=== PATIENT | female | born 1990 | race Caucasian/White ===

== ENCOUNTER 2016-10-22 23:24 | Inpatient (IN) | payer OTHER ==
[~2016-10-22] VITALS: Ht 149.9 cm; Wt 72.6 kg
[~2016-10-22 23:24] MED LIST: CIPR-255 PO; CLON0.5T3 PO; PRLSR20 PO; QUET-206 PO; SERT50TA PO
[2016-10-23] MEDS ORDERED: LACTATED RINGER'S 1000ML 1,000 ML IV SCH (00:22)
[2016-10-23] MEDS ORDERED: LACTATED RINGER'S 1000ML 1,000 ML IV PRN (00:22)
[2016-10-23] MEDS ORDERED: FERR1TAB23 (00:26)
[2016-10-23] MEDS ORDERED: ESOM20CA PO (00:26)
[2016-10-23] MEDS ORDERED: PRENTAB26 PO (00:26)
[2016-10-23 00:27] VITALS: Ht 149.9 cm; Wt 72.6 kg
[2016-10-23 01:03] LABS: MEAN CELL VOLUME 79.7 fL (80-100); MEAN CORPUSCULAR HEMOGLOBIN 27.6 pg (25-34); MEAN CORPUSCULAR HGB CONC 34.6 g/dl (32-36); MEAN PLATELET VOLUME 9.7 fL (7.4-10.4); PLATELET COUNT 422 K/uL (130-400); RED BLOOD COUNT 4.64 M/uL (4.2-5.4); WHITE BLOOD COUNT 22.28 K/uL (4.8-10.8)
[2016-10-23] MEDS ORDERED: LACTATED RINGER'S 1000ML 500 ML IV PRN ×2 (06:58→15:02)
[2016-10-23] MEDS: OXYTOCIN 30 UNITS/500ML NSS IV PRN ×2 (07:18→15:36)
--- NOTE | 2016-10-23 07:38 | HISTORY & PHYSICAL EXAMINATION ---
DATE OF ADMISSION: 10/23/2016 CHIEF COMPLAINT: Spontaneous rupture of membranes. HISTORY OF PRESENT ILLNESS: The patient is a 26-year-old 1, para 0 at 39 weeks and 4 days gestation, who presents to labor and delivery with spontaneous rupture of membranes that occurred at approximately 8:00 p.m. on 10/22/2016. On arrival, she was grossly ruptured and she was found to be 3 cm, 50% effaced, and -2 station. heart tones were category 1. Her care has been uncomplicated. She was found to be a gestational diabetic class A1 and has been well controlled on diet alone. No other complications. PAST MEDICAL HISTORY: Significant for anxiety and bipolar and history of abnormal Pap smears. PAST SURGICAL HISTORY: The patient denies any previous surgeries. SOCIAL HISTORY: The patient is a half-a-pack to a 6-sykm-otz-day smoker. She denies alcohol or drug use. MEDICATIONS: vitamins, Zoloft 50 mg daily, Seroquel 400 mg daily, Nexium and iron. ALLERGIES: No known drug allergies. LABS: Blood type is A positive, group B strep negative, rubella immune, hepatitis B surface antigen negative, RPR nonreactive and HIV negative. PHYSICAL EXAMINATION: VITAL SIGNS: Blood pressure is 123/73, heart rate of 95, respiration rate of 18, temperature of 97.9. GENERAL: The patient is awake, alert and oriented x3. She is in mild distress from contractions. HEART: Regular rate and rhythm. LUNGS: Clear to auscultation bilaterally. ABDOMEN: Gravid uterus, appropriate for gestational age. Estimated weight 6-7 pounds. Bowel sounds present x4. EXTREMITIES: No clubbing, cyanosis or calf tenderness. VAGINAL EXAM: She is currently 3-4 cm, 60% effaced, and -3 station. heart tones category 1. Contractions are anywhere from 3-5 minutes. ASSESSMENT AND PLAN: A 26-year-old 1, para 0 at 39 weeks and 4 days gestation, will be admitted to labor and delivery for active labor. She is GBS negative. Will begin oxytocin per protocol. She may have her epidural upon request. Will augment labor as needed and anticipate vaginal delivery. [facility]
[2016-10-23] MEDS ORDERED: EpHEDrine SULFATE INJ 50 MG/ML AMP ONE (14:29)
[2016-10-23] MEDS ORDERED: BUPIVACAINE 0.25% 30 ML VIAL ONE (14:29)
[2016-10-23] MEDS ORDERED: FENTANYL 2MCG/ML ROPIV 1.25MG/ML 100ML BAG EPI ONE (14:29)
[2016-10-23] MEDS ORDERED: FENTANYL CITRATE INJ 50 MCG/1 ML 2 ML VIAL ONE (14:30)
[2016-10-23] MEDS ORDERED: NALOXONE HCL INJ 1 MG in SODIUM CHLORIDE 0.9% 1000ML 1,000 ML IV PRN (15:02)
[2016-10-23] MEDS ORDERED: EpHEDrine SULFATE INJ 50 MG/ML AMP IV PRN (15:15)
[2016-10-23] MEDS ORDERED: ONDANSETRON INJ 2 MG/ML 2 ML VIAL IV PRN (15:15)
[2016-10-23] MEDS ORDERED: DiphenhydrAMINE HCL 50 MG/ML VIAL IV PRN (15:15)
[2016-10-23] MEDS ORDERED: NALOXONE HCL INJ 0.4 MG/1 ML VIAL/CARP IV PRN (15:15)
[2016-10-23] MEDS ORDERED: NALBUPHINE HCL INJ 10 MG/ML AMP IV PRN (15:15)
[2016-10-23] MEDS ORDERED: FENTANYL 2MCG/ML ROPIV 1.25MG/ML 100ML BAG EPI PRN (15:15)
[2016-10-23] MEDS ORDERED: CITRIC ACID/SODIUM CITRATE 15 ML UDC ONE (19:39)
[2016-10-23] MEDS ORDERED: LIDOCAINE/EPINEPHRINE 2% 1:200,000 20 ML SDV ONE ×2 (19:57→20:24)
[2016-10-23] MEDS ORDERED: SODIUM BICARBONATE 8.4% INJ 50 MEQ/50 ML VIAL ONE (20:01)
[2016-10-23] MEDS ORDERED: OXYTOCIN INJ 10 UNITS/ML VIAL ONE (20:02)
[2016-10-23] MEDS ORDERED: MoRPHine SULFATE PF 1 MG/ML 10 ML AMP/VIAL ONE (20:03)
[2016-10-23] MEDS ORDERED: CITRIC ACID/SODIUM CITRATE 15 ML UDC PO ONE (20:15)
[2016-10-23] MEDS ORDERED: MoRPHine SULFATE PF 1 MG/ML 10 ML AMP/VIAL EPI PRN (20:45)
[2016-10-23] MEDS ORDERED: MoRPHine SULFATE 2 MG/ML CARP IV PRN (20:45)
[2016-10-23] MEDS ORDERED: NO NARCOTICS OR SEDATIVES SCH (20:45)
[2016-10-23] MEDS ORDERED: DC INTRASPINAL MORPHINE PRN (20:45)
[2016-10-23] MEDS ORDERED: MEPERIDINE HCL 25 MG/ML CARP IV PRN (20:45)
[2016-10-23] MEDS ORDERED: CONTINUE MEDICATION ONE (20:45)
[2016-10-23] MEDS ORDERED: LANOLIN OINT EXT PRN ×2 (21:15)
[2016-10-23] MEDS ORDERED: BENZOCAINE 20% AER SPR 82.5 GM CAN EXT PRN (21:15)
[2016-10-23] MEDS ORDERED: SENNA 8.6 MG TAB PO PRN (21:15)
[2016-10-23] MEDS ORDERED: DIPHTHERIA/TETANUS/PERTUSSIS 0.5 ML SYR/VIAL IM. ONE (21:15)
[2016-10-23] MEDS ORDERED: MAGNESIUM HYDROXIDE SUSP 30 ML UDC PO PRN (21:15)
[2016-10-23] MEDS ORDERED: SUPERCREAM 0.870 % 15GM JAR EXT PRN (21:15)
[2016-10-23] MEDS ORDERED: HYDROCORTISONE ACETATE 25 MG SUPP PR PRN (21:15)
--- NOTE | 2016-10-23 21:17 | [facility] Post Operative Brief Note ---
Immediate Operative Summary Operative Date Oct 23, 2016. Pre-Operative Diagnosis Primary Caesarean Section for Failure to Progress Post-Operative Diagnosis Same with of Live Female Child Procedure(s) Performed Lower Transverse Uterine Caesarean Section Surgeon Dr. Alvarado Field Technical Specialist Surgeon(s) Dr. Frazier Estimated Blood Loss 500ML Findings Patient delivered a viable female . Please see pediatricians notes for further baby assessment. Cord blood obtained. Intact placenta with 3 VC delivered manually. Normal uterus and bilateral tubes and ovaries noted. Patient tolerated the surgery well and was sent to recovery with stable vital signs. Fluids (cc crystalloids) 1700 Specimens A: Placenta- Hold B: Cord Blood Drains Koch to gravity Anesthesia Epidural bolus Complication(s) None Disposition L&D
[2016-10-23] MEDS: OXYTOCIN INJ 30 UNITS in LACTATED RINGER'S 1000ML 1,000 ML IV SCH (21:37)
--- NOTE | 2016-10-23 21:40 | Anesthesiology Progress Note ---
Anesthesia Post Op Note Date & Time Oct 23, 2016 at 21:41 Vital Signs Pain Intensity: 0.0 Notes Mental Status: alert / awake / arousable, participated in evaluation Pt Amnestic to Procedure: Yes Nausea / Vomiting: adequately controlled Pain: adequately controlled Airway Patency, RR, SpO2: stable & adequate BP & HR: stable & adequate Hydration State: stable & adequate Neuraxial Anesthesia: was administered, sensory block is resolving Anesthetic Complications: no major complications apparent
[2016-10-23] MEDS: KETOROLAC TROMETHAMINE 30 MG/ML VIAL IV. PRN (21:59)
[2016-10-23] MEDS: QUETIAPINE FUMARATE 200 MG TAB PO SCH (22:00)
--- NOTE | 2016-10-23 22:11 | OPERATIVE REPORT ---
DATE OF OPERATION: 10/23/2016 PREOPERATIVE DIAGNOSES: 1. Intrauterine at 39 weeks and 4 days gestation. 2. Failure to progress. POSTOPERATIVE DIAGNOSES: Same. OPERATIVE PROCEDURE: Primary low transverse section. SURGEON: Dr. Alvarado. PETROLEUM REFINING FIRER: Dr. Frazier. ANESTHESIA: Bolus of her epidural. ESTIMATED BLOOD LOSS: 500 mL. IV FLUIDS: 1700 mL crystalloids. SPECIMENS: Cord blood and placenta with 3-vessel cord. DRAINS: Koch to gravity. COMPLICATIONS: None. DISPOSITION: To labor and delivery. OPERATIVE FINDINGS: The patient delivered a viable female infant in the vertex position. Nuchal cord x1 was reduced at delivery. Apgars 8 at 1 minute and 9 at 5 minutes. Please see weaver needle loom's notes for further baby assessment. Cord blood was then obtained and an intact placenta with 3-vessel cord was delivered manually. Normal uterus and bilateral tubes and ovaries were noted. The patient and baby tolerated the surgery well and were sent to recovery with stable vital signs. INDICATIONS FOR PROCEDURE: The patient is a 26-year-old 1, para 0 at 39 weeks and 4 days gestation who was admitted to labor and delivery on the unarmed security officer of 10/23/2016 with spontaneous rupture of membranes that occurred approximately at 8:00 p.m. on 10/22/2016. On arrival, she was 3-4 cm dilated, 50% effaced and -3 station. She was allowed to ambulate throughout the morning. Oxytocin was started per protocol. She did receive epidural for anesthesia. Despite adequate contractions, she failed to progress any further than 6 cm, 50% effaced, and -2 station. heart tones were category 1 prior to delivery, a primary section was called secondary to failure to progress. Risks, benefits and alternatives were discussed with the patient and informed consent was obtained. OPERATIVE PROCEDURE IN DETAIL: The patient was taken to the operating room where her epidural was bolused. She was placed in dorsal supine position with a left lateral tilt and was prepped and draped in a manner appropriate for the procedure. Once anesthesia was found to be adequate, a Pfannenstiel skin incision was made 2 fingerbreadths above the pubic symphysis and was carried down through to a layer of the rectus fascia. Fascia was nicked in the midline and extended bilaterally with curved Dila scissors. The superior aspect of the fascial incision was grasped with Sindhu clamps, elevated, and the rectus muscles were dissected off with the use of the curved Dial scissors and electrocautery. Likewise, the inferior aspect of the fascial incision was grasped with Sindhu clamps, elevated, and rectus muscles were dissected off with the use of the curved Dial scissors and electrocautery. The rectus muscles were then in midline. The peritoneum was grasped with hemostats x2 and was entered with Metzenbaum scissors. The peritoneal incision was then extended cephalocaudally with gentle traction. The bladder blade was then placed within the abdomen. The vesicouterine peritoneum was identified and a bladder flap was created with the Metzenbaum scissors and digital traction. The bladder flap was reincorporated beneath the Holcomb blade. A transverse incision was then made on the uterus and extended bilaterally with digital traction. The head was then identified and delivered through the incision along with the rest of the body. Baby was bulb suctioned on delivery. Cord was clamped x2 and cut. The baby was immediately handed to an awaiting weaver needle loom for further evaluation and management. Please see their notes for further baby assessment. Cord blood was then obtained and intact placenta with 3-vessel cord was delivered through the incision manually. The uterus was then exteriorized and wrapped in a moist laparotomy sponge. The uterus was then cleared of any trailing membranes and debris with the laparotomy sponge. The incision was then grasped with ringed forceps at 4 quadrants and was closed with 0 Vicryl suture in continuous locking fashion, a second 0 Vicryl suture was used in an imbricating fashion for hemostasis. Excellent hemostasis was noted at the incision, the bladder flap was reapproximated with 3-0 Vicryl suture in continuous running fashion. The posterior cul-de-sac was then irrigated with warm saline solution. The uterus was then placed back within its normal anatomic position within the abdomen. The anterior cul-de-sac was then irrigated with warm saline solution. The uterine incision was noted to be hemostatic once again. All instruments were then removed from the abdomen. The peritoneum was then grasped with Jacqui clamps at 4 quadrants and was closed with 2-0 Vicryl suture in continuous running fashion. The rectus muscles were reapproximated with 0 Vicryl suture in a [id number] interrupted fashion. The rectus fascia was then closed with 0 Vicryl suture in continuous running fashion. The subcutaneous tissue was reapproximated with 2-0 Vicryl suture in an interrupted fashion. Skin was then closed with chica. Excellent hemostasis was noted through all tissue layers. Both patient and baby tolerated the surgery well and were sent to recovery with stable vital signs. I attest to the content of the Intraoperative Record and any orders documented therein. Any exceptio ns are noted below.
[2016-10-24] VITALS (23 sets, daily range): BP systolic 98–116; BP diastolic 55–77; PULSE 76–97; TEMP 36.3–37.2; O2SAT 92–98
[2016-10-24] MEDS: KETOROLAC TROMETHAMINE 30 MG/ML VIAL IV. PRN ×2 (04:03→10:36)
[2016-10-24] MEDS ORDERED: LACTATED RINGER'S 1000ML 1,000 ML IV SCH (05:30)
[2016-10-24] MEDS: OXYTOCIN INJ 30 UNITS in LACTATED RINGER'S 1000ML 1,000 ML IV SCH (05:59)
[2016-10-24] MEDS ORDERED: CEFAZOLIN IV 2,000 MG in DEXTROSE 5% 50ML 50 ML IV SCH (06:00)
[2016-10-24 06:18] LABS: HEMATOCRIT 32.8 % (37-47); MEAN CELL VOLUME 80.4 fL (80-100); MEAN CORPUSCULAR HGB CONC 33.5 g/dl (32-36); MEAN PLATELET VOLUME 9.3 fL (7.4-10.4); PLATELET COUNT 355 K/uL (130-400); RED BLOOD COUNT 4.08 M/uL (4.2-5.4); WHITE BLOOD COUNT 20.83 K/uL (4.8-10.8)
[2016-10-24 06:43] LABS: COMPLETE YES; EOSINOPHIL % 0.9 %; LYMPH ABS # 1.29 K/uL (1.2-3.4); LYMPHOCYTE % 6.2 %; MYELOCYTE % 0.9 %; NEUTROPHILS % 89.3 %; POLYCHROMASIA 1+
[2016-10-24] MEDS: SIMETHICONE 80 MG CHEW PO SCH ×4 (08:27→20:17)
[2016-10-24] MEDS: PRENATAL VITAMIN TAB PO SCH (08:28)
[2016-10-24] MEDS: SERTRALINE HCL 50 MG TAB PO SCH (08:28)
[2016-10-24] MEDS: FERROUS SULFATE 325 MG TAB PO SCH (08:28)
[2016-10-24] MEDS: PANTOprazole SOD 40 MG TAB PO SCH (08:28)
[2016-10-24] MEDS: DOCUSATE SODIUM 100 MG CAP PO SCH ×2 (08:28→20:17)
--- NOTE | 2016-10-24 10:49 | Surgery Progress Note ---
Surgery Progress Note Date of Service Oct 24, 2016. Subjective Post OP Day: 1 + feeling well, + pain controlled Objective Vital Signs: Date Time Temp Pulse Resp B/P Pulse Ox O2 Delivery O2 Flow Rate FiO2 10/24/16 07:55 96 Room Air 10/24/16 07:40 37.2 96 18 99/62 95 Room Air 96 10/24/16 06:00 18 95 10/24/16 05:20 20 94 10/24/16 04:00 20 94 10/24/16 03:30 37.0 97 20 98/55 94 Room Air 10/24/16 03:10 94 Room Air 10/24/16 03:10 18 94 10/24/16 02:00 18 92 10/24/16 01:00 36.8 84 18 116/60 93 Room Air 10/24/16 01:00 18 93 10/24/16 00:00 36.7 96 18 108/60 93 Room Air 10/24/16 00:00 93 Room Air 10/24/16 00:00 18 93 General Appearance: no apparent distress Abdomen: non tender, non distended, soft Incision(s): clean, dry, intact Extremities: non-tender, normal inspection, no pedal edema Laboratory Results: Results Past 24 Hours Test 10/24/16 06:03 Range/Units White Blood Count 20.83 4.8-10.8 K/uL Red Blood Count 4.08 4.2-5.4 M/uL Hemoglobin 11.0 12.0-16.0 g/dL Hematocrit 32.8 37-47 % Mean Corpuscular Volume 80.4 80-100 fL Mean Corpuscular Hemoglobin 27.0 25-34 pg Mean Corpuscular Hemoglobin Concent 33.5 32-36 g/dl Platelet Count 355 130-400 K/uL Mean Platelet Volume 9.3 7.4-10.4 fL RDW Standard Deviation 48.0 36.4-46.3 fL RDW Coefficient of Variation 16.4 11.5-14.5 % Neutrophils % (Manual) 89.3 % Lymphocytes % (Manual) 6.2 % Monocytes % (Manual) 2.7 % Eosinophils % (Manual) 0.9 % Myelocytes % 0.9 % Neutrophils # (Manual) 18.60 1.4-6.5 K/uL Total Absolute Neutrophils 18.60 1.4-6.5 K/uL Lymphocytes # (Manual) 1.29 1.2-3.4 K/uL Total Absolute Lymphocytes 1.29 1.2-3.4 K/uL Monocytes # (Manual) 0.56 0.11-0.59 K/uL Eosinophils # (Manual) 0.19 0-0.5 K/uL Myelocytes # 0.19 0-0 K/uL Polychromasia 1+ Assessment & Plan pod#1 [facility]
[2016-10-24] MEDS: GUAIFENESIN SUGAR FREE 100 MG/5 ML UDC PO PRN ×2 (12:23→22:42)
[2016-10-24] MEDS ORDERED: KETOROLAC TROMETHAMINE 30 MG/ML VIAL IV. PRN (15:40)
[2016-10-24] MEDS ORDERED: ZOLPIDEM TARTRATE 5 MG TAB PO PRN (15:40)
[2016-10-24] MEDS ORDERED: OXYCODONE/ACETAMINOPHEN 5-325 TAB PO PRN (15:40)
[2016-10-24] MEDS ORDERED: ONDANSETRON INJ 2 MG/ML 2 ML VIAL IV PRN (15:40)
[2016-10-24] MEDS: IBUPROFEN 600 MG TAB PO PRN (20:18)
[2016-10-24] MEDS: OXYCODONE/ACETAMINOPHEN 5-325 TAB PO PRN (20:18)
[2016-10-24] MEDS ORDERED: BISACODYL 5 MG TABEC PO ONE (22:00)
[2016-10-24] MEDS: QUETIAPINE FUMARATE 200 MG TAB PO SCH (22:38)
[2016-10-25] MEDS: IBUPROFEN 600 MG TAB PO PRN ×5 (04:38→21:59)
[2016-10-25 06:20] LABS: HEMATOCRIT 33.7 % (37-47)
[2016-10-25 08:30] VITALS: BP 102/64; PULSE 91; TEMP 36.4; O2SAT 98
[2016-10-25] MEDS: FERROUS SULFATE 325 MG TAB PO SCH (08:51)
[2016-10-25] MEDS: OXYCODONE/ACETAMINOPHEN 5-325 TAB PO PRN ×4 (08:51→22:00)
[2016-10-25] MEDS: SIMETHICONE 80 MG CHEW PO SCH ×4 (08:51→19:56)
[2016-10-25] MEDS: PANTOprazole SOD 40 MG TAB PO SCH (08:51)
[2016-10-25] MEDS: DOCUSATE SODIUM 100 MG CAP PO SCH ×2 (08:51→19:56)
[2016-10-25] MEDS: PRENATAL VITAMIN TAB PO SCH (08:51)
--- NOTE | 2016-10-25 09:57 | Surgery Progress Note ---
Surgery Progress Note Date of Service Oct 25, 2016. Subjective Post OP Day: 1 + ambulating (+ve ), + diet (Tolerating PO food and Meds), + feeling well (+ve ) , + flatus (+ve ), No SOB, No bowel movement, No chest pain, No complaints, No nausea, No pain controlled, No vomiting Objective Vital Signs: Date Time Temp Pulse Resp B/P Pulse Ox O2 Delivery O2 Flow Rate FiO2 10/24/16 23:45 98 Room Air 10/24/16 23:45 36.6 76 18 106/71 98 Room Air 10/24/16 20:00 36.6 88 22 100/67 Room Air 10/24/16 16:45 95 Room Air 10/24/16 15:32 36.3 85 16 101/62 95 Room Air 10/24/16 15:09 16 95 10/24/16 13:30 16 97 10/24/16 12:30 16 97 10/24/16 11:48 16 94 10/24/16 11:45 36.7 93 16 112/77 94 Room Air 10/24/16 10:30 16 96 General Appearance: WD/WN, no apparent distress Head: normocephalic, atraumatic Neck: supple, no adenopathy, thyroid normal, no JVD, no carotid bruits, trachea midline Respiratory/Chest: chest non-tender, lungs clear, normal breath sounds, no respiratory distress, no accessory muscle use Cardiovascular: regular rate, rhythm, no edema, no gallop, no JVD, no murmur Abdomen: normal bowel sounds, non tender, non distended, soft, no organomegaly , no pulsatile mass Incision(s): clean, dry, intact, no erythema, no drainage Extremities: normal range of motion, non-tender, normal inspection, no pedal edema, no calf tenderness, normal capillary refill, pelvis stable Laboratory Results: Results Past 24 Hours Test 10/25/16 06:00 Range/Units Hemoglobin 11.2 12.0-16.0 g/dL Hematocrit 33.7 37-47 % Assessment & Plan c/sec day #2 pt doing well No complaints
[2016-10-25] MEDS: SERTRALINE HCL 50 MG TAB PO SCH (10:38)
[2016-10-25 16:25] VITALS: BP 125/83; PULSE 86; TEMP 36.5; O2SAT 97
[2016-10-25] MEDS ORDERED: BISACODYL 10 MG SUPP PR PRN (21:15)
[2016-10-25 23:45] VITALS: BP 132/77; PULSE 77; TEMP 36.8; O2SAT 98
[2016-10-26] MEDS: QUETIAPINE FUMARATE 200 MG TAB PO SCH (01:52)
[2016-10-26 07:42] VITALS: BP 115/78; PULSE 88; TEMP 36.6; O2SAT 98
[2016-10-26] MEDS: OXYCODONE/ACETAMINOPHEN 5-325 TAB PO PRN (07:42)
[2016-10-26] MEDS: IBUPROFEN 600 MG TAB PO PRN (07:42)
[2016-10-26] MEDS: PRENATAL VITAMIN TAB PO SCH (07:44)
[2016-10-26] MEDS: FERROUS SULFATE 325 MG TAB PO SCH (07:44)
[2016-10-26] MEDS: SIMETHICONE 80 MG CHEW PO SCH (07:44)
[2016-10-26] MEDS: DOCUSATE SODIUM 100 MG CAP PO SCH (07:44)
[2016-10-26] MEDS: PANTOprazole SOD 40 MG TAB PO SCH (07:46)
[2016-10-26] MEDS: SERTRALINE HCL 50 MG TAB PO SCH (07:46)
[2016-10-26 07:50] VITALS: O2SAT 98
[2016-10-26] MEDS ORDERED: MTR600X PO (09:20)
[2016-10-26] MEDS ORDERED: OXYC-57 PO (09:20)
--- NOTE | 2016-10-26 09:21 | Discharge Instructions ---
Discharge Instructions Date of Service Oct 26, 2016. Admission Reason for Admission: Active Labor Discharge Discharge Diagnosis / Problem: PRIMARY SECTION Discharge Goals Goal(s): Routine recovery after Medications Continue Dispensed Medications: supercream, dermaplast, tucks, lansinoh Activity Recommendations Activity Limitations: per Instructions/Follow-up section . Instructions / Follow-Up Instructions / Follow-Up ACTIVITY RECOMMENDATIONS: * Gradual return to full activity over the next 2-3 weeks. * No lifting - nothing heavier than baby over the next 2-3 weeks. * Do not engage in vigorous exercise, sexual activity or sports until cleared by your physician. * Do not drive or operate any motorized equipment until cleared by your physician. * You may shower/bathe daily. BREAST CARE: If you are not breast feeding: * Wear a supportive bra 24 hours a day for one to two weeks. * Avoid stimulating your breasts and nipples as much as possible during the first few weeks after delivery. * When taking a shower, have the warm water hit your back, not breasts. * When your breasts feel full, apply ice packs. Usually three to four times a day helps ease the discomfort. * Take a mild pain medication (Tylenol/Motrin) when you are uncomfortable. If breast feeding: * Use breast milk to lubricate nipples. Lansinoh cream may be used for sore nipples. You do not need to remove cream prior to breast feeding. If using a different brand of cream, check the label for directions regarding removal of cream prior to nursing. * Wear a supportive bra. * If having problems with breasts or breast feeding, call a real estate consultant or your health care provider. OVER THE COUNTER MEDICATION: * For discomfort or pain, you may use Acetaminophen (Tylenol), Ibuprofen (Advil ), or Naproxen (Aleve) following the package directions. * For constipation you may use Colace following the package directions. SPECIAL CARE INSTRUCTIONS: When you are discharged from the hospital, it is important for you to follow the instructions listed below: * During the first week at home, you should be able to care for yourself and your baby. In addition, the usual light household activities are encouraged. * Limit your activities to the way you feel. Do not try to clean the house or move furniture. Be sensible. * If you actively engage in sports and have done so up until the time of your delivery, you may resume these activities as soon as you feel able. This may take up to one month or even longer. Use good judgment. * Continue to take your vitamins for at least six weeks after the of your baby. * Your diet need not be limited unless you were on a special diet before your delivery. Breast-feeding mothers need around 2500 calories per day and at least 64-80 ounces of fluid per day (8 to 10 glasses). * You should eat foods from the four major food groups. Crash diets or fad diets are to be avoided. Eating lean meats, fresh fruits and vegetables, low-fat dairy products, high fiber foods and a regular exercise program, will help you get back to your pre- weight without putting your health at risk. * Constipation is sometimes a problem after delivery. Take a mild laxative as needed. If breast feeding, Milk of Magnesia is acceptable to use. You may use a suppository or Fleets enema if no episiotomy. * A daily shower or tub bath is suggested. Be sure to thoroughly and gently dry the perineum. * A bloody vaginal discharge will usually continue until around four weeks post . A small amount of bleeding may continue for as long as six weeks. Vaginal discharge changes from the bright red bleeding after delivery to pink then brownish and finally yellowish-pink before becoming white and disappearing. * Bleeding may increase with activity. Your first period may come in 4-8 weeks. If you are breast feeding, your period may be delayed even longer. * [place] (sex) can begin whenever both you and your partner feel comfortable and do not have any form of genital infection. It is recommended that you wait at least six weeks for internal and external healing to occur. If you have questions, please talk to your health care practitioner. A condom should be used to prevent infection and . * Foreplay, gentle intercourse and lubrication is very important the first several times to prevent pain. A water-based lubricant such as K-Y jelly or Astroglide may be used. * Tampons and/or Douching should be avoided until after six weeks check-up. * If you have RH negative blood and your baby is RH positive, you will receive RHOGAM by injection prior to discharge. The nurse will give you a card to keep with you that has the date and place that you received RHOGAM after delivery. * During your care, you had a Rubella screen done to check for the presence of rubella antibodies in your blood. If your test was negative, you will receive a Rubella vaccine prior to discharge. This vaccine may cause a fever, soreness at the injection site and flu-like symptoms. If these symptoms persist, notify your health care practitioner. is not advised for three months after a Rubella vaccine. * Verbalizes understanding of car seat law as reviewed with patient nursing. * Car Seat hand-out given and reviewed with patient by nursing. * Shaken baby information reviewed with patient by nursing. Call you doctor if: * Heavy bleeding (saturating several pads an hour) or passing clots the size of your fist. * A fever >101 degrees F (38.3 degrees C) on two occasions four hours apart and /or chills. * Unusual pain in the pelvic or vaginal areas. Pain should improve each day . * Call the doctor for any increased redness, drainage or swelling around the incision and any pain unrelieved by prescribed pain medication. * Any signs or symptoms of phlebitis (possible blood clots forming in the veins ): leg pain, warm, red or swollen area on leg. * "Baby Blues" lasting longer than two weeks. If you have any questions or concerns, call your health care practitioner at . FOLLOW-UP VISIT: * Incision check (staple removal) in 1 week. Please call doctor's office at to set up appointment. * Please call the office at to schedule a 6 week examination. It is important you keep this appointment. * It is important for you to make arrangements for either yearly or twice yearly check-ups thereafter. Current Hospital Diet Patient's current hospital diet: Regular OB Diet Discharge Diet Recommended Diet: Regular OB Diet Procedures Procedures Performed: Lower Transverse Uterine Caesarean Section Pending Studies Studies pending at discharge: no Medical Emergencies . Who to Call and When: Medical Emergencies: If at any time you feel your situation is an emergency, please call 911 immediately. . Non-Emergent Contact Non-Emergency issues call your: Beam Dyer Recessed Vat . . "Provider Documentation" section prepared by Harshil Alvarado. VTE Core Measure Inpt VTE Proph given/why not?: Treatment not indicated [place] Drug Monitoring Program Search Results: no issues identified
--- NOTE | 2016-10-26 09:25 | OB/GYN Progress Note ---
SENIOR ENERGY MARKET COORDINATOR Progress Note Date of Service Oct 26, 2016. Subjective conversation w/ patient, physical exam Ambulation: ambulating normally Voiding: no voiding problems Passing Gas: Yes Diet Tolerance: Regular Diet Lochia: Small Feeding Type: Bottle Feeding Pain: 09/28 Notes: Doing well. Pain well controlled. Lochia minimal. Tolerating regular diet. Ambulating without difficulty. Would like to go home today. Objective Vital Signs Date Time Temp Pulse Resp B/P Pulse Ox O2 Delivery O2 Flow Rate FiO2 10/26/16 07:42 36.6 88 18 115/78 98 Room Air 10/25/16 23:45 36.8 77 16 132/77 98 Room Air 10/25/16 23:45 98 Room Air 10/25/16 16:25 97 Room Air 10/25/16 16:25 36.5 86 20 125/83 97 Room Air Physical Exam General Appearance: WELL-APPEARING Respiratory/Chest: chest non-tender, lungs clear Cardiovascular: regular rate, rhythm Abdomen: normal bowel sounds, soft Fundus: Firm Incision Description: Clean, Dry & Intact Extremities: normal range of motion, non-tender, no calf tenderness Assessment and Plan Post-Op Day Number: 3 Continue Routine Care: -D/C home today -F/u in 1 week for staple removal.
[2016-10-26 10:00] VITALS: BP_DIAS 78; PULSE 88; TEMP 36.6
--- NOTE | 2016-11-07 16:53 | Discharge Summary ---
Discharge Summary Date of Service Nov 07, 2016. Discharge Summary Admission Date: Oct 23, 2016 at 00:24 Discharge Date: Oct 26, 2016 Discharge Disposition: Home Principal Diagnosis: Term IUP at 39.4 weeks, GDMA1, Failure to progress Procedures: Primary section Medication Reconciliation New Medications: Ibuprofen (Ibuprofen) 600 Mg Tab 600 MG PO Q4H PRN for Pain, GONG, Cramping, or Fever, #30 TAB Oxycodone/Acetaminophen 5MG/325MG (Percocet 5MG/325MG) Tab 1 TAB PO Q4H PRN for Pain - Pain Scale 1-5, #30 TAB PAIN Continued Medications: Esomeprazole Magnesium (Nexium) 20 Mg Capcr 20 MG PO DAILY, CAP Ferrous Sulfate (Iron) 325 Mg Tab Multivit/Min/Iron/Fol Ac/Pren ( Vitamin) Tab 1 TAB PO DAILY, TAB Quetiapine Fumarate (Seroquel) 400 Mg Tab 400 MG PO HS, TAB Sertraline (Zoloft) 50 Mg Tab 50 MG PO DAILY, TAB Admission Information HPI (per Admitting provider): HISTORY OF PRESENT ILLNESS: The patient is a 26-year-old 1, para 0 at 39 weeks and 4 days gestation, who presents to labor and delivery with spontaneous rupture of membranes that occurred at approximately 8:00 p.m. on 10/22/2016. On arrival, she was grossly ruptured and she was found to be 3 cm, 50% effaced, and -2 station. heart tones were category 1. Her care has been uncomplicated. She was found to be a gestational diabetic class A1 and has been well controlled on diet alone. No other complications. Physical Exam (per Admitting): General Appearance: WD/WN, no apparent distress Respiratory/Chest: chest non-tender, lungs clear Cardiovascular: regular rate, rhythm Abdomen/GI: normal bowel sounds, soft Neurologic/Psych: alert, oriented x 3 Skin: normal color, warm/dry, no rash Hospital Course Patient underwent a primary section secondary to failure to progress. Despite adequate contractions she failed to dilate further then 6 cm. Her surgery went uncomplicated and both patient and baby tolerated it well and was in recovery with stable vital signs. Her postop recovery was uneventful. Her garner catheter was removed on POD#1. Her diet and activity were advanced as tolerated. Her incision remained clean/dry/intact. She was discharged home on POD # 3 with discharge instructions. Total time spent on discharge = 20 mins This includes examination of the patient, discharge planning, medication reconciliation, and communication with other providers. Discharge Instructions ACTIVITY RECOMMENDATIONS: * Gradual return to full activity over the next 2-3 weeks. * No lifting - nothing heavier than baby over the next 2-3 weeks. * Do not engage in vigorous exercise, sexual activity or sports until cleared by your physician. * Do not drive or operate any motorized equipment until cleared by your physician. * You may shower/bathe daily. BREAST CARE: If you are not breast feeding: * Wear a supportive bra 24 hours a day for one to two weeks. * Avoid stimulating your breasts and nipples as much as possible during the first few weeks after delivery. * When taking a shower, have the warm water hit your back, not breasts. * When your breasts feel full, apply ice packs. Usually three to four times a day helps ease the discomfort. * Take a mild pain medication (Tylenol/Motrin) when you are uncomfortable. If breast feeding: * Use breast milk to lubricate nipples. Lansinoh cream may be used for sore nipples. You do not need to remove cream prior to breast feeding. If using a different brand of cream, check the label for directions regarding removal of cream prior to nursing. * Wear a supportive bra. * If having problems with breasts or breast feeding, call a wellness consultant or your health care provider. OVER THE COUNTER MEDICATION: * For discomfort or pain, you may use Acetaminophen (Tylenol), Ibuprofen (Advil ), or Naproxen (Aleve) following the package directions. * For constipation you may use Colace following the package directions. SPECIAL CARE INSTRUCTIONS: When you are discharged from the hospital, it is important for you to follow the instructions listed below: * During the first week at home, you should be able to care for yourself and your baby. In addition, the usual light household activities are encouraged. * Limit your activities to the way you feel. Do not try to clean the house or move furniture. Be sensible. * If you actively engage in sports and have done so up until the time of your delivery, you may resume these activities as soon as you feel able. This may take up to one month or even longer. Use good judgment. * Continue to take your vitamins for at least six weeks after the of your baby. * Your diet need not be limited unless you were on a special diet before your delivery. Breast-feeding mothers need around 2500 calories per day and at least 64-80 ounces of fluid per day (8 to 10 glasses). * You should eat foods from the four major food groups. Crash diets or fad diets are to be avoided. Eating lean meats, fresh fruits and vegetables, low-fat dairy products, high fiber foods and a regular exercise program, will help you get back to your pre- weight without putting your health at risk. * Constipation is sometimes a problem after delivery. Take a mild laxative as needed. If breast feeding, Milk of Magnesia is acceptable to use. You may use a suppository or Fleets enema if no episiotomy. * A daily shower or tub bath is suggested. Be sure to thoroughly and gently dry the perineum. * A bloody vaginal discharge will usually continue until around four weeks post . A small amount of bleeding may continue for as long as six weeks. Vaginal discharge changes from the bright red bleeding after delivery to pink then brownish and finally yellowish-pink before becoming white and disappearing. * Bleeding may increase with activity. Your first period may come in 4-8 weeks. If you are breast feeding, your period may be delayed even longer. * [place] (sex) can begin whenever both you and your partner feel comfortable and do not have any form of genital infection. It is recommended that you wait at least six weeks for internal and external healing to occur. If you have questions, please talk to your health care practitioner. A condom should be used to prevent infection and . * Foreplay, gentle intercourse and lubrication is very important the first several times to prevent pain. A water-based lubricant such as K-Y jelly or Astroglide may be used. * Tampons and/or Douching should be avoided until after six weeks check-up. * If you have RH negative blood and your baby is RH positive, you will receive RHOGAM by injection prior to discharge. The nurse will give you a card to keep with you that has the date and place that you received RHOGAM after delivery. * During your care, you had a Rubella screen done to check for the presence of rubella antibodies in your blood. If your test was negative, you will receive a Rubella vaccine prior to discharge. This vaccine may cause a fever, soreness at the injection site and flu-like symptoms. If these symptoms persist, notify your health care practitioner. is not advised for three months after a Rubella vaccine. * Verbalizes understanding of car seat law as reviewed with patient nursing. * Car Seat hand-out given and reviewed with patient by nursing. * Shaken baby information reviewed with patient by nursing. Call you doctor if: * Heavy bleeding (saturating several pads an hour) or passing clots the size of your fist. * A fever >101 degrees F (38.3 degrees C) on two occasions four hours apart and /or chills. * Unusual pain in the pelvic or vaginal areas. Pain should improve each day . * Call the doctor for any increased redness, drainage or swelling around the incision and any pain unrelieved by prescribed pain medication. * Any signs or symptoms of phlebitis (possible blood clots forming in the veins ): leg pain, warm, red or swollen area on leg. * "Baby Blues" lasting longer than two weeks. If you have any questions or concerns, call your health care practitioner at . FOLLOW-UP VISIT: * Incision check (staple removal) in 1 week. Please call doctor's office at to set up appointment. * Please call the office at to schedule a 6 week examination. It is important you keep this appointment. * It is important for you to make arrangements for either yearly or twice yearly check-ups thereafter.
== END 2016-10-26 10:52 | disposition home or self-care (01) | DRG 766 ==
LOC: C.OPB 23:24 → C.LD 23:24 → C.OPB 10-23 00:24 → C.LD 10-23 00:24 → C.OBG 10-23 23:30
PROVIDERS: ADMIT Obstetrics & Gynecology; ATTEND Obstetrics & Gynecology
PROC: 10H073Z Insertion of Monitoring Electrode into Products of Conception, Via Natural or Artificial Opening (ICD-10-PCS; principal; 2016-10-23 19:54)
PROC: 10D00Z1 Extraction of Products of Conception, Low, Open Approach (ICD-10-PCS; principal; 2016-10-23 19:54)
PROC: 10H07YZ Insertion of Other Device into Products of Conception, Via Natural or Artificial Opening (ICD-10-PCS; principal; 2016-10-23 19:54)
DX: O62.2 Other uterine inertia (principal); O76 Abnormality in fetal heart rate and rhythm complicating labor and delivery; O69.81X0 Labor and delivery complicated by cord around neck, without compression, not applicable or unspecified; O24.420 Gestational diabetes mellitus in childbirth, diet controlled; O99.344 Other mental disorders complicating childbirth; F31.9 Bipolar disorder, unspecified; F41.9 Anxiety disorder, unspecified; O99.334 Smoking (tobacco) complicating childbirth; F17.210 Nicotine dependence, cigarettes, uncomplicated; O99.62 Diseases of the digestive system complicating childbirth; K21.9 Gastro-esophageal reflux disease without esophagitis; Z37.0 Single live birth; Z3A.39 39 weeks gestation of pregnancy; Z79.899 Other long term (current) drug therapy